=== PATIENT | male | born 1950 | race Caucasian/White ===

== ENCOUNTER 2024-11-22 07:56 | Emergency (ER) | payer OTHER ==
[2024-11-22 08:18] VITALS: BP 140/88; PULSE 68
== END 2024-11-22 09:35 | disposition home or self-care (01) ==
LOC: JP.ED 07:56
DX: M54.50 Low back pain, unspecified (principal); E78.00 Pure hypercholesterolemia, unspecified; Z79.899 Other long term (current) drug therapy
CPT/HCPCS: 99283